=== PATIENT | male | born 1940 | race American Indian/Alaskan Native ===

== ENCOUNTER 2018-05-10 09:52 | Outpatient (CLI) | payer OTHER | END 2018-05-10 09:53 | disposition home or self-care (01) | LOC: RAD 09:52 ==

== ENCOUNTER 2018-05-20 10:46 | Day surgery (SDC) | payer OTHER ==
[2018-05-15 10:21] VITALS: BMI 34.9
[2018-05-20 12:10] LABS: BASO # 0.02 K/mm3 (0.0-2.0); BASO % 0.3 % (0.0-3.0); EOS # 0.1 (0.0-0.7); EOS % 1.6 % (1.5-5.0); GRAN # 4.28 (1.4-6.5); GRAN % 53.9 % (50.0-68.0); HEMOGLOBIN 14.3 g/dL (14.0-18.0); LYMPH # 2.6 (1.2-3.4); LYMPH % 32.9 % (22.0-35.0); MEAN CELL VOLUME 97.5 fl (80.0-105.0); MEAN CORPUSCULAR HEMOGLOBIN 32.9 pg (25.0-35.0); MEAN CORPUSCULAR HGB CONC 33.7 g/dl (31.0-37.0); MEAN PLATELET VOLUME 9.6 fl (7.0-11.0); MONO # 0.9 (0.1-0.6); MONO % 11.3 % (1.0-6.0); RBC 4.35 10^6/uL (3.5-6.1); RED CELL DISTRIBUTION WIDTH 12.1 % (11.5-14.5); WHITE BLOOD COUNT 7.9 10^3/uL (4.5-11.0)
[2018-05-20 12:18] LABS: INR 1.14; PARTIAL THROMBOPLASTIN TIME 30.4 Seconds (25.1-36.5); PROTHROMBIN TIME 13.2 SECONDS (9.4-12.5)
[2018-05-20 12:19] LABS: BLOOD UREA NITROGEN 14 mg/dL (7-21); CALCIUM 9.9 mg/dL (8.4-10.5); GFR NON-AFRICAN AMERICAN 54
[2018-05-20] MEDS ORDERED: Iodixanol 320 mg/ml 150 ml Bottle IV ONE (12:57)
[2018-05-20] MEDS ORDERED: Nitroglycerin 50mg in D5W 50 MG/250 ML BOTTLE IV ONE (12:57)
[2018-05-20] MEDS ORDERED: Lidocaine 2% Inj (20ml) ONE (12:57)
[2018-05-20] MEDS ORDERED: Iodixanol 320 MG/ML 200 ML BOTTLE IV ONE (12:57)
[2018-05-20] MEDS ORDERED: Midazolam 2 MG/2 ML VIAL ONE ×2 (13:56→14:34)
[2018-05-20] MEDS ORDERED: Oxycodone/Acetaminophen 5/325 mg Tab PO PRN (15:34)
[2018-05-20] MEDS ORDERED: Sodium Chloride 0.45% 1,000 ML IV SCH (15:45)
--- NOTE | 2018-05-20 16:05 | VASCULAR ---
Date of service: 05/20/2018 PROCEDURE: 1. Abdominal aortogram and bilateral lower extremity runoff. HISTORY: Severe peripheral vascular disease. Diabetes. Previous left AKA. Nonhealing ischemic ulcer right medial ankle. PHYSICIAN(S): Benjamin Stevenson M.D. TECHNIQUE: The relative risks and indications of the procedure were explained to the patient and consent obtained. The patient was hydrated prior to the procedure and the appropriate labs drawn. The patient was placed supine on the arteriogram table and the left groin prepped and draped in the usual sterile fashion. Conscious sedation and monitoring were provided throughout the procedure by a nurse. Via a left common femoral artery approach, a 5 [place] sheath was placed in the left groin. Through the sheath and over a guidewire, a 5 [place] flush catheter was placed in the abdominal aorta at the level of the renal arteries and a PA DSA abdominal aortogram performed. The catheter was pulled down to the aortic bifurcation and bilateral oblique DSA pelvic arteriograms performed. The catheter was advanced over bifurcation placed in the right common femoral artery. A selective right lower extremity DSA arteriogram was performed. Magnification views of the right foot were obtained. A 0.035 angled Glidewire was advanced over the bifurcation and placed in the distal right SFA. A 7 [place] 65 cm destination sheath was placed in the mid to distal right SFA. Heparin 5000 units IV and nitroglycerin in 250 mcg aliquots were given. The multi focal stenoses in the right popliteal artery and proximal to mid right anterior tibial artery were crossed with an angled glidewire and 5 [place] catheter.. Exchange was made for a 0.014 support guidewire. The proximal to mid right anterior tibial artery was dilated with a 3.0 x 150 mm 0.014 balloon. An excellent angiographic result was obtained. [place] atherectomy of the right popliteal artery was performed with and LS catheter. Five passes were performed. Next the right popliteal artery was dilated with a 5.0 x 150 mm drug-eluting balloon. An excellent angiographic result was obtained and no stent was necessary. The sheath was removed hemostasis obtained with a Perclose device. The patient tolerated the procedure well. FINDINGS: There are single renal arteries bilaterally. Mild disease of the proximal right renal artery is seen. The left renal artery is widely patent.. The nephrograms are symmetric in appearance. The infrarenal abdominal aorta is widely patent and smoothly calcified.. The aortic bifurcation is widely patent. The common and external iliac arteries are normal in appearance without a significant stenosis. The internal iliac arteries are patent bilaterally. Right lower extremity: The right common femoral artery is patent. The right profunda femoral artery is patent. The right superficial femoral artery is smoothly disease without radiographically significant stenosis. There are multiple critical stenoses in the right popliteal artery above the knee. There is severe right trifurcation and tibial occlusive disease. The right anterior tibial artery is a predominant supply to the foot. Multiple moderate to severe stenoses are seen in the proximal right anterior tibial and mid right anterior tibial arteries. The right peroneal and posterior tibial arteries are occluded.. The right dorsalis pedis artery is patent with pedal occlusive disease. Chronic collaterals are present. The right plantar arch is occlude Left lower extremity: Left common femoral artery is patent. The left profunda femoral artery is hypertrophied. The left SFA occludes at its origin. The patient is status post left AKA P IMPRESSION: 1.Successful angioplasty of the proximal to mid right anterior tibial artery. 2. Successful [place] atherectomy and drug-eluting balloon angioplasty of the right popliteal artery. 3. 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
[2018-05-20 17:26] VITALS: RESP 20; TEMP 97.8; O2SAT 100
[2018-05-20 17:28] VITALS: PULSE 66
[2018-05-20 18:52] VITALS: BP 153/78
== END 2018-05-20 19:11 | disposition home or self-care (01) ==
LOC: SDSVAS 10:46
PROVIDERS: ATTEND Radiology Vascular & Interventional Radiology
DX: E11.51 Type 2 diabetes mellitus with diabetic peripheral angiopathy without gangrene (principal); E11.622 Type 2 diabetes mellitus with other skin ulcer; L97.319 Non-pressure chronic ulcer of right ankle with unspecified severity; I10 Essential (primary) hypertension; F17.200 Nicotine dependence, unspecified, uncomplicated; Z79.84 Long term (current) use of oral hypoglycemic drugs; Z89.612 Acquired absence of left leg above knee
CPT/HCPCS: 36415; 37227; 37228; 75625; 75716; 80048; 85025; 85610; 85730; 99152; 99153; C1714; C1725 ×4; C1760; C1769 ×3; C1887; C1894; J0360; J1644 ×2; J2250; J2405; J3010; J7030; Q9966; Q9967

== ENCOUNTER 2018-08-20 09:42 | Outpatient (CLI) | payer OTHER | END 2018-08-20 09:43 | disposition home or self-care (01) | LOC: RAD 09:43 ==